=== PATIENT | female | born 1975 | race Caucasian/White ===

== ENCOUNTER 2021-12-07 19:31 | Emergency (ER) | payer OTHER ==
[~2021-12-07] VITALS: Ht 172.7 cm; Wt 72.6 kg
[2021-12-07] MEDS ORDERED: CITA10TA17 PO (19:49)
--- NOTE | 2021-12-07 19:57 | NUR ---
DR BERMAN INTO EVAL PATIENT.
[2021-12-07] MEDS ORDERED: LIDOCAINE HCL 1% 20 ML VIAL IJ ONE (20:00)
--- NOTE | 2021-12-07 21:14 | NUR ---
Patient discharged to home in stable condition. Written and verbal after care instructions given. Patient verbalizes understanding of instructions. Stressed follow up or return to ER for worsening s/s. Patient out of ER with steady gait, no acute signs of distress, VSS, all belongings taken.
[2021-12-07 21:15] VITALS: BP 128/81
== END 2021-12-07 21:15 | disposition home or self-care (01) ==
LOC: ER 19:36
DX: S61.011A Laceration without foreign body of right thumb without damage to nail, initial encounter (principal); W26.0XXA Contact with knife, initial encounter; Y92.89 Other specified places as the place of occurrence of the external cause; Z91.013 Allergy to seafood
CPT/HCPCS: 12001; 99282; J3490; A4217; A4663